=== PATIENT | female | born 1945 | race Caucasian/White ===

== ENCOUNTER 2016-06-04 10:05 | Observation (INO) ==
[2016-06-04] MEDS ORDERED: 0.9 % Sodium Chloride 1,000 ML IVC ONE (10:16)
--- NOTE | 2016-06-04 10:16 | Emergency Department Note ---
Disposition Clinical Impression: Chest pain, Head and neck cancer, Hyperlipidemia, Hypertension, Anxiety, Arm numbness left, Numbness of tongue, Cerebrovascular disease, Smoker, Abnormal EKG Disposition: Admitted As Inpatient Referrals: Francois Witt Jr, MD [Primary Care Provider] - Forms: ED Satisfaction Letter General Adult HPI - General Chief complaint: ED Neuro Symptoms/Deficit Stated complaint: neuro Time Seen by Provider: 06/04/16 10:16 Source: patient - History of Present Illness HPI Narrative: 71-year-old female reports emergent department from her primary care physician' s office. Per reports the patient complaints of some chest pain radiating to the back with some left arm discomfort or coldness. Per secondary reports that the patient experienced left upper extremity numbness and tongue numbness. The patient denies any headache or trauma or neck pain. She is not on blood thinners at this time. The patient has not fallen or injured herself. Additional concerns were nausea and perhaps weakness and a near syncopal event last night. There is no history of mamadou syncope or direct trauma. No problem moving the arms or legs and apparently no dysarthria or bowel or bladder dysfunction no acute lower back pain. She does express mid back pain however. The patient has a history of malignancy. There is no history of coughing up blood and abdominal pain vomiting or diarrhea. There is no history of rash or fever. The patient reports the numbness in her left upper extremity occurred immediately prior to arrival. She described tongue numbness but had no difficulty moving her tongue. Additional history reveals the patient has had increasing right arm weakness for the last few months. She reports she has trouble picking things up. Pain Scale: 0 - Related Data Home Medications Medication Instructions Recorded Confirmed Amlodipine [Norvasc] 5 mg PO DAILY 01/07/15 06/04/16 Aspirin 81 mg PO DAILY 01/07/15 06/04/16 Hydrocodone/Acetaminophen [[place] 1 tab PO Q4H PRN 01/07/15 06/04/16 5-325 Tablet] LORazepam [Ativan] 1 mg PO BID PRN 01/07/15 06/04/16 Lisinopril [Zestril] 40 mg PO DAILY 01/07/15 06/04/16 Omeprazole [PriLOSEC] 20 mg PO DAILY 01/07/15 06/04/16 Ascorbate Calcium [Vitamin C] 500 mg PO DAILY 05/15/15 06/04/16 Lactobacillus Acidophilus 1 mg PO DAILY 07/02/15 06/04/16 [Acidophilus Probiotic] Levothyroxine [Synthroid] 75 mcg PO DAILY 06/04/16 06/04/16 Previous Rx's Medication Instructions Recorded Cholecalciferol (Vitamin D3) 4,000 unit PO DAILY #30 capsule 03/09/16 [Vitamin D3] Citalopram Hydrobromide [Celexa] 40 mg PO DAILY #30 tab 06/01/16 Allergies Allergy/AdvReac Type Severity Reaction Status Date / Time No Known Allergies Allergy Verified 01/10/15 09:28 All systems ED: reviewed and negative except as stated. Past Medical History - Past Medical History Medical history: Reports: cancer, hypertension Surgical history: Reports: appendectomy, hysterectomy Psychiatric history: Reports: anxiety - Social History Smoking Status: Current every day smoker Alcohol use: Reports: none Drug use: Reports: none Physical Exam - General Limitations: no limitations General appearance: alert, in no apparent distress - Head Head exam: atraumatic, normocephalic, normal inspection - Eye Eye exam: Present: normal appearance, PERRL, EOMI. Absent: scleral icterus, conjunctival injection, miosis, mydriasis - ENT ENT exam: normal exam, normal oropharynx, mucous membranes moist, TM's normal bilaterally, normal external ear exam - Neck Neck exam: Present: normal inspection, full ROM, trachea midline - Chest Chest inspection: Present: symmetric chest wall rise. Absent: tenderness - Respiratory Respiratory exam: Present: normal lung sounds bilaterally. Absent: respiratory distress - Cardiovascular Cardiovascular exam: Present: regular rate, normal rhythm, normal heart sounds - Abdominal Exam Abdominal exam: Present: soft, Non-Tender. Absent: tenderness, distention, guarding, rebound, rigidity, pulsatile mass - Extremities Exam Extremities exam: Present: normal inspection, full ROM, normal capillary refill. Absent: tenderness, pedal edema, joint swelling, calf tenderness - Expanded Lower Extremity Exam Neurovascular/Tendon exam: Absent: motor deficit, sensory deficit, tendon deficit - Back Exam Back exam: Present: normal inspection, full ROM. Absent: tenderness, CVA tenderness (R), CVA tenderness (L), vertebral tenderness - Neurological Exam Neurological exam: Present: alert, oriented X3, CN II-XII intact, other (The patient has good motor strength and general sensation but complains of numbness in the left upper extremity. She also complains of tongue numbness but is able to stick her tongue out straight without difficulty and her speech is not altered. The patient does perseverate. She is not frankly confused.). Absent : motor sensory deficit - Psychiatric Psychiatric exam: Present: agitated - Skin Skin exam: Present: warm, dry, intact, normal color. Absent: rash, cyanosis, diaphoresis, erythema, pallor, mottled Course - Reevaluation(s) Reevaluation #1: In the ED the patient describes significant anxiety based on the family history of vascular disease including stroke coronary disease heart attacks and bypass. She was somewhat tearful. We monitored her here After a period of time she became less responsive. Her blood pressure did go into the 160s over 120s. She is being sent for stat CTA chest to assess for potential dissection, where awaiting neurologist consultation via tele-stroke.. Vital Signs Temperature 98.2 F 06/04/16 10:07 Pulse Rate 62 06/04/16 10:07 Respiratory Rate 12 06/04/16 10:07 Blood Pressure 178/85 06/04/16 10:07 O2 Sat by Pulse Oximetry 100 06/04/16 10:07 Temperature 98.2 F 06/04/16 10:07 Pulse Rate 67 06/04/16 10:31 Respiratory Rate 12 06/04/16 10:31 Blood Pressure 165/76 06/04/16 10:31 O2 Sat by Pulse Oximetry 100 06/04/16 10:07 Medical Decision Making - [facility] Narrative Medical decision making narrative: Patient arrived from the doctor's office initially there were concerns for chest pain which the patient described as midsternal radiating straight to the back. The patient has had no abdominal pain or trauma but she described nausea she initially described left arm symptomatology which was feeling cold then later felt that her left arm was numb and she had tongue numbness. Her neurologic exam does not reveal marked changes although slight pronator drift on the left is noted over time. There is no history of coughing up blood. She has a known malignancy. I reviewed the patient's recent stress test which was negative, as well as her recent CT scan of the chest and neck which showed no major changes. Based on her complaints, a stroke alert was initiated with simultaneous CT request of the chest to evaluate for potential intrathoracic vascular issues including dissection. The patient did complain of chest pain radiating to the back and the upper thoracic region in association with points of neurologic changes. During my examination the patient perseverate in her history but did not display mamadou confusion. Based on potential confusion, history of hypertension, history of hypokalemic, smoker, complaints of chest pain and neurologic symptoms I thought an aggressive evaluation would be appropriate. The patient's head scan chest scan and general laboratory testing were essentially negative. The patient's EKG did show some chronic T wave inversions without acute ST elevations. On review the patient had a stress test within the last year which showed no significant defects with an EF of 70%. The [facility] stroke neurologist did do an evaluation via the stroke robot. No TPA recommended. Admission here or at [facility] appropriate, aspirin therapy, if concerns or worsening reconsult [facility], the patient preferred here, I spoke with Dr. Mckenzie neurologist on-call who is willing to consult, I spoke with Dr. Finch hospitalist on-call who has accepted the patient to his care he has recommended MRI studies which have been ordered. The patient was given aspirin and appears to be stable. - Lab Data Lab results reviewed: Yes I reviewed the patient's lab results. Result diagrams: 06/04/16 10:13 06/04/16 10:13 Lab Results 06/04/16 06/04/16 06/04/16 Range/Units 10:13 10:13 10:13 WBC 5.1 (4.3-11.1) K/mcL RBC 5.80 H (3.82-4.97) M/mcL Hgb 16.0 H (11.5-15.4) g/dL Hct 48.7 H (35.3-44.9) % MCV 84.0 (83.0-100.0) fL MCH 27.6 L (28.0-33.3) pg MCHC 32.9 (31.6-35.5) g/dL RDW 14.0 (11.5-14.5) % Plt Count 232 (140-400) K/mcL MPV 10.1 (9.4-12.4) fL Immature Gran % 0.2 (0-4) % Seg Neutrophils % 65.3 % Lymphocytes % 23.2 % Monocytes % 8.4 % Eosinophils % 2.1 % Basophils % 0.8 % Neutrophils # 3.4 (1.6-8.9) K/mcL Lymphocytes # 1.2 (0.6-4.6) K/mcL Monocytes # 0.4 (0.0-1.3) K/mcL Eosinophils # 0.1 (0.0-0.6) K/mcL Basophils # 0.0 (0.0-0.2) K/mcL PT 10.5 (9.4-12.1) Seconds INR 1.0 APTT 33.4 (26.0-36.0) Seconds Sodium 140 (136-145) mEq/L Potassium 4.1 (3.5-4.5) mEq/L Chloride 104 (98-109) mEq/L Carbon Dioxide 25 (19-29) mEq/L BUN 13 (7-20) mg/dL Creatinine 1.10 (0.57-1.11) mg/dL Est GFR ( Amer) 59 L (> 60) Est GFR (Non-Af Amer) 49 L (> 60) BUN/Creatinine Ratio 12 (6-26) Glucose 108 H (70-99) mg/dL Calculated Osmolality 291 (280-300) Calcium 10.4 (8.6-10.8) mg/dL Total Bilirubin 0.7 (0.2-1.2) mg/dL Direct Bilirubin 0.2 (0.0-0.5) mg/dL Indirect Bilirubin 0.5 (0.0-1.2) mg/dL AST 16 (5-34) Units/L ALT 12 (0-55) Units/L Alkaline Phosphatase 73 (38-126) Units/L Troponin I (0-0.03) ng/mL Serum Total Protein 7.8 (6.0-8.3) g/dL Albumin 4.3 (3.5-5.0) g/dL Globulin 3.5 (2.4-3.5) g/dL Albumin/Globulin Ratio 1.2 (1.1-2.2) Lipase 36 (8-78) Units/L 06/04/16 Range/Units 10:13 WBC (4.3-11.1) K/mcL RBC (3.82-4.97) M/mcL Hgb (11.5-15.4) g/dL Hct (35.3-44.9) % MCV (83.0-100.0) fL MCH (28.0-33.3) pg MCHC (31.6-35.5) g/dL RDW (11.5-14.5) % Plt Count (140-400) K/mcL MPV (9.4-12.4) fL Immature Gran % (0-4) % Seg Neutrophils % % Lymphocytes % % Monocytes % % Eosinophils % % Basophils % % Neutrophils # (1.6-8.9) K/mcL Lymphocytes # (0.6-4.6) K/mcL Monocytes # (0.0-1.3) K/mcL Eosinophils # (0.0-0.6) K/mcL Basophils # (0.0-0.2) K/mcL PT (9.4-12.1) Seconds INR APTT (26.0-36.0) Seconds Sodium (136-145) mEq/L Potassium (3.5-4.5) mEq/L Chloride (98-109) mEq/L Carbon Dioxide (19-29) mEq/L BUN (7-20) mg/dL Creatinine (0.57-1.11) mg/dL Est GFR ( Amer) (> 60) Est GFR (Non-Af Amer) (> 60) BUN/Creatinine Ratio (6-26) Glucose (70-99) mg/dL Calculated Osmolality (280-300) Calcium (8.6-10.8) mg/dL Total Bilirubin (0.2-1.2) mg/dL Direct Bilirubin (0.0-0.5) mg/dL Indirect Bilirubin (0.0-1.2) mg/dL AST (5-34) Units/L ALT (0-55) Units/L Alkaline Phosphatase (38-126) Units/L Troponin I 0.00 (0-0.03) ng/mL Serum Total Protein (6.0-8.3) g/dL Albumin (3.5-5.0) g/dL Globulin (2.4-3.5) g/dL Albumin/Globulin Ratio (1.1-2.2) Lipase (8-78) Units/L - Radiology Data Radiology results reviewed: Yes I reviewed the patient's radiology results.
[2016-06-04 10:22] LABS: Basophils % 0.8 %; Eosinophils # 0.1 K/mcL (0.0-0.6); Eosinophils % 2.1 %; Hematocrit 48.7 % (35.3-44.9); Immature Granulocytes % 0.2 % (0-4); Lymphocytes # 1.2 K/mcL (0.6-4.6); Lymphocytes % 23.2 %; Mean Corpuscular HGB Conc 32.9 g/dL (31.6-35.5); Mean Corpuscular Hemoglobin 27.6 pg (28.0-33.3); Mean Platelet Volume 10.1 fL (9.4-12.4); Monocytes # 0.4 K/mcL (0.0-1.3); Monocytes % 8.4 %; Neutrophils # 3.4 K/mcL (1.6-8.9); Segmented Neutrophils % 65.3 %
[2016-06-04 10:24] LABS: Platelet Count 232 K/mcL (140-400)
[2016-06-04 10:32] LABS: Activated Partial Thrombo Time 33.4 Seconds (26.0-36.0)
[2016-06-04 10:33] LABS: Albumin 4.3 g/dL (3.5-5.0); Albumin/Globulin Ratio 1.2 (1.1-2.2); Bilirubin,Direct 0.2 mg/dL (0.0-0.5); Bilirubin,Indirect 0.5 mg/dL (0.0-1.2); Bilirubin,Total 0.7 mg/dL (0.2-1.2); Calcium 10.4 mg/dL (8.6-10.8); Globulin 3.5 g/dL (2.4-3.5); Potassium 4.1 mEq/L (3.5-4.5); Total Protein 7.8 g/dL (6.0-8.3)
[2016-06-04 10:35] LABS: Prothrombin Time 10.5 Seconds (9.4-12.1)
[2016-06-04] MEDS ORDERED: Aspirin 325 MG TABLET PO ONE (12:07)
[2016-06-04] MEDS ORDERED: Ondansetron 4 MG/2 ML VIAL IVP PRN (13:20)
[2016-06-04] MEDS ORDERED: Naloxone 0.4 MG/ML INJ IVP PRN (13:20)
[2016-06-04] MEDS ORDERED: 0.9 % Sodium Chloride 1,000 ML IVC SCH (13:30)
[2016-06-04] MEDS ORDERED: *HR* HYDROcodone/Acet 5/325 mg TABLET PO PRN (15:30)
--- NOTE | 2016-06-04 15:44 | Internal Med History&Physical ---
<Dianelys Drew - Last Filed: 06/04/16 16:36> Date of Encounter: 06/04/16 Time of Encounter: 15:00 Internal Medicine - H&P: HPI Chief complaint: CP Admitted From: Home Plans for Post Hospital Care: Home History of present illness: Ms. Barnett is a 71 year old female with past medical history of hypertension hypothyroid COPD esophageal cancer. According to the patient she has been experiencing dizzy spells and nausea with an unsteady gait for the past 2 weeks. She also has been experiencing pain that she describes as pressure initiates in the back and radiates to left side of her chest and left arm. She has also been experiencing left upper extremity numbness and tongue numbness. She has stated that she has noted a decrease in her strength in her right arm for the past few months and has difficulty picking things up. She apparently had an episode last night which she experienced weakness and near syncopal event. She presented to her PCP with the above complaints EKG was obtained and the patient was sent to the emergency room for concerns of chest pain. She presented to the ER with the above complaints. According to the ER records the patient had some difficulty recalling history and did have an elevated blood pressure while in the ER. CT of head was obtained which was negative troponin was negative. Rest of lab work unremarkable. EKG unchanged from previous. ER physician did speak with stroke neurologist who did an evaluation by the stroke robot he did not recommending tPA however he felt admission was appropriate for observation and aspirin therapy. Our Neurology group-Dr. Mckenzie was also consulted via telephone, and see patient during admission. The patient was given aspirin and has been admitted for further workup and evaluation. Patient did undergo MRI MRA neck head. At present time the patient is alert oriented and appropriate. She follows simple commands. Cranial nerves II through XII intact she was able to ambulate without difficulty she denies any headaches or visual changes and at present time is hemodynamically stable. I reviewed the case with Dr. odell to who agrees with plan. Assessment and plan Right arm numbness-possible TIA symptoms at present time this is resolved-CT of head is negative-MRI/MRA head /neck are negative-nerve check within normal limits at this time appears patient is at baseline. Consulted neurology awaiting their recommendations. We will continue with aspirin we will start on low-dose statin check lipid profile obtain echo. We will continue with cardiac monitoring neuro checks patient did pass a bedside swallow well-balanced diet. Chest pain-patient's been experiencing back pain radiated to left sided chest down left arm with left arm numbness tingling. First a cardiac troponins negative. We will continue to cycle troponins will obtain cardiac echo EKG did show some slight ST depression in lateral leads-patient did have a cardiac stress test in September of last year which was negative for patient follow-up as outpatient with PCP and consult cardiology as needed -Hypertension, essential presently systolic around 150 will continue with lisinopril and Norvasc. -Tobacco abuse encourage patient to stop smoking offered nicotine patch which patient declined COPD presently stable oxygen and bronchodilators as needed -DVT prophylaxis-encourage patient to ambulate Past Med Surg Social Fam HX - Past Medical History Medical history: cancer, hypertension Psychiatric history: anxiety - Past Surgical History Surgical History: appendectomy, hysterectomy, orthopedic, other - Social History Smoking Status: Current every day smoker Packs per day: 1 Smokeless Tobacco Status: No Alcohol use: none Drug use: none - Family History Mother Living Status: Age at : 50 Cause of : [place] Hx Family Cardiac Disorders: Yes ([place]) Father Living Status: Cause of : [place] Hx Family Cardiac Disorders: Yes ([place]) Internal Medicine - H&P: Meds Amlodipine [Norvasc] 5 mg PO DAILY 01/07/15 [History] Aspirin 81 mg PO DAILY 01/07/15 [History] Hydrocodone/Acetaminophen [[place] 5-325 Tablet] 1 tab PO Q4H PRN 01/07/15 [ History] LORazepam [Ativan] 1 mg PO BID PRN 01/07/15 [History] Lisinopril [Zestril] 40 mg PO DAILY 01/07/15 [History] Omeprazole [PriLOSEC] 20 mg PO DAILY 01/07/15 [History] Ascorbate Calcium [Vitamin C] 500 mg PO DAILY 05/15/15 [History] Lactobacillus Acidophilus [Acidophilus Probiotic] 1 mg PO DAILY 07/02/15 [ History] Cholecalciferol (Vitamin D3) [Vitamin D3] 4,000 unit PO DAILY #30 capsule [Rx] Citalopram Hydrobromide [Celexa] 40 mg PO DAILY #30 tab 06/01/16 [Rx] Levothyroxine [Synthroid] 75 mcg PO DAILY 06/04/16 [History] Allergies No Known Allergies Allergy (Verified 01/10/15 09:28) All Systems PM: A 10-system review of systems was performed and is negative for pertinent findings except as documented above in the HPI. - Constitutional Constitutional: weakness - Cardiovascular Cardiovascular ROS IM: chest pain - Respiratory Respiratory: no cough, no dyspnea, no wheezing, no excessive phlegm production - Gastrointestinal Gastrointestinal: no abdominal pain, no diarrhea, no hematemesis, no hematochezia, no melena, no nausea, no vomiting - Genitourinary Genitourinary: no change in urinary stream, no dysuria, no flank pain, no hematuria - Musculoskeletal Musculoskeletal ROS IM: back pain - Integumentary Integumentary IM: no rash, no unusual bruising - Neurological Neurological ROS: numbness, vertigo, weakness - Constitutional Vitals: Temp Pulse Resp BP Pulse Ox 97.4 F L 57 16 154/75 100 06/04/16 14:34 06/04/16 14:34 06/04/16 14:34 06/04/16 14:34 06/04/16 14:34 - Head Head exam: Present: atraumatic, normocephalic - Eye Eye exam: Present: PERRL, conjuntiva pink, sclera anicteric Pupils: Present: PERRL - Neck Neck exam general surgery: Present: supple, trachea midline. Absent: lymphadenopathy - Respiratory Respiratory exam: Present: CTAB. Absent: accessory muscle use, rales, rhonchi, wheezes - Cardiovascular Cardiovascular exam: Present: RRR, +S1, +S2. Absent: diastolic murmur, gallop, rubs, systolic murmur - GI/Abdominal GI/Abdominal exam: Present: normal bowel sounds, soft, no peritoneal signs. Absent: distended, tenderness - Extremities Exam Extremities exam: Present: warm, radial pulses palpable and symetrical. Absent : calf tenderness, cyanotic, pedal edema - Neurological Exam Neurological exam: Present: CN II-XII intact, oriented X3, no focal deficits, strengths equal and symetr throughout. Absent: pronater drift, facial droop, speech deficit - Skin Skin exam: Present: dry, intact Internal Med - H&P Results - Labs CBC & Chem 7: 06/04/16 10:13 06/04/16 10:13 - EKG Data EKG shows normal: sinus rhythm Rate: bradycardia - EKG Data Prior EKG available for review: yes When compared to previous EKG: there is no significant change - Impressions ITS Impressions Brain MRI 06/04/16 12:34 IMPRESSION: 1. No acute intracranial abnormality. Specifically, no acute infarction. 2. Supratentorial white matter foci of abnormal signal compatible with chronic microvascular ischemic changes. 3. Unremarkable MRA of the neck. 4. Unremarkable MRA of the head. D/ / 06/04/2016 15:00:12 Lara Garza MD / fuentes Interpreting Provider: Lara Garza MD - Diagnostic Studies MRI - head Additional comments: per radiology read no acute intracranial bleed <Marc Finch - Last Filed: 06/04/16 18:48> Date of Encounter: 06/04/16 Internal Medicine - H&P: HPI History of present illness: Ms. Barnett is a 71 year old female All Systems PM: A 10-system review of systems was performed and is negative for pertinent findings except as documented above in the HPI. - Constitutional Vitals: Temp Pulse Resp BP Pulse Ox 97.4 F L 57 16 154/75 100 06/04/16 14:34 06/04/16 14:34 06/04/16 14:34 06/04/16 14:34 06/04/16 14:34 Internal Med - H&P Results - Labs CBC & Chem 7: 06/04/16 10:13 06/04/16 10:13 Labs: Cardiac Enzymes 06/04/16 Range/Units 16:31 Troponin I 0.00 (0-0.03) ng/mL - Impressions ITS Impressions Brain MRI 06/04/16 12:34 IMPRESSION: 1. No acute intracranial abnormality. Specifically, no acute infarction. 2. Supratentorial white matter foci of abnormal signal compatible with chronic microvascular ischemic changes. 3. Unremarkable MRA of the neck. 4. Unremarkable MRA of the head. D/ / 06/04/2016 15:00:12 Lara Garza MD / fuentes Interpreting Provider: Lara Garza MD - Attending Attestation I examined this patient and my medical decision-making was reviewed with the Advanced Practice Provider. I agree with the documented findings, disposition and treatment plan as described except to the extent set forth below. On exam she appears anxious, no acute distress oriented 3. Heart regular rate and rhythm S1 and S2, lungs clear bilaterally Plan: Complete workup for TIA with telemetry and echocardiogram. MRI report noted with no evidence of stroke. Continue aspirin. We will add Ativan for anxiety.
--- NOTE | 2016-06-04 16:29 | Neurology - Consult Note ---
Date of Encounter: 06/04/16 Time of Encounter: 16:27 Assessment and Plan (1) Arm numbness left Current Visit: Yes Status: Acute My impression that the numbness of the left upper extremity in fact be anxiety related. She has had numerous neuroimaging studies completed today which were negative. She informs me that she has had these spells repeatedly over the last few years. She did not have an echocardiogram today she has had echocardiograms in the past, she also reports having had EEGs in the past. In the past neurologic workups have been unrevealing. I would recommend ongoing management of her stroke risk factors, aspirin daily. I do not feel that further testing from a neurologic perspective is necessary at this time. I will reevaluate her at your request. The documentation in the history of HPI and plan were at least partially created by [employer] recognition technology by Dr. Mckenzie. Errors in grammar, wording or other phrases may exist. If errors are found after the documentation signed, they will be addressed individually in the addendum section of this document when appropriate. History of Present Illness HPI: Ms. Barnett is a 71 year old female was seen and evaluated secondary to left upper extremity weakness with associated dizziness. The chart was reviewed, the patient was seen and examined. She has been experiencing intermittent spells of what she calls dizziness with associated nausea for the past 2 weeks. He frequently feels like she is going to lose consciousness however she has not actually passed out. She is awake and alert and oriented to person place and time she is able to give a lucid history of her medical illness. Currently she feels back to her baseline and is pressing to be released from the hospital. MRI scan of the brain along with MRA of the brain and neck were completed and unrevealing. He is no evidence of an acute diffusion deficit to explain the symptoms. Past Med Surg Social Fam HX - Past Medical History Medical history: cancer, hypertension Psychiatric history: anxiety - Past Surgical History Surgical History: appendectomy, hysterectomy, orthopedic, other - Social History Smoking Status: Current every day smoker Packs per day: 1 Smokeless Tobacco Status: No Alcohol use: none Drug use: none - Family History Mother Living Status: Age at : 50 Cause of : MA Hx Family Cardiac Disorders: Yes (MA) Father Living Status: Cause of : MA Hx Family Cardiac Disorders: Yes (MA) Medications and Allergies Amlodipine [Norvasc] 5 mg PO DAILY 01/07/15 [History] Aspirin 81 mg PO DAILY 01/07/15 [History] Hydrocodone/Acetaminophen [[place] 5-325 Tablet] 1 tab PO Q4H PRN 01/07/15 [ History] LORazepam [Ativan] 1 mg PO BID PRN 01/07/15 [History] Lisinopril [Zestril] 40 mg PO DAILY 01/07/15 [History] Omeprazole [PriLOSEC] 20 mg PO DAILY 01/07/15 [History] Ascorbate Calcium [Vitamin C] 500 mg PO DAILY 05/15/15 [History] Lactobacillus Acidophilus [Acidophilus Probiotic] 1 mg PO DAILY 07/02/15 [ History] Cholecalciferol (Vitamin D3) [Vitamin D3] 4,000 unit PO DAILY #30 capsule [Rx] Citalopram Hydrobromide [Celexa] 40 mg PO DAILY #30 tab 06/01/16 [Rx] Levothyroxine [Synthroid] 75 mcg PO DAILY 06/04/16 [History] Allergies No Known Allergies Allergy (Verified 01/10/15 09:28) All Systems: A 10-system review of systems was performed and is negative for pertinent findings except as documented above in the HPI. Review of Systems: Ten point review of systems is consistent with a history of present illness otherwise negative. Physical Examination - Vital Signs Vital Signs: Initial Vital Signs Temp Pulse Resp BP Pulse Ox 98.2 F 62 12 178/85 100 06/04/16 10:07 06/04/16 10:07 06/04/16 10:07 06/04/16 10:07 06/04/16 10:07 - Neurologic Detailed motor examination: grossly full strength in all extremities Motor examination - right side: 4/5: tibialis Anterior, toe extension (EHL), 5/5 : deltoids, biceps, triceps, wrist flexion, wrist extension, biodiesel production associate, hip flexors, quadriceps, plantarflexion Motor examination - left side: 4/5: deltoids (Giveaway), biceps (Giveaway), tibialis Anterior, toe extension (EHL), 5/5: triceps, wrist extension, hip flexors, biodiesel production associate, quadriceps, plantarflexion Detailed sensory examination: intact Reflexes: Biceps: 1+, Triceps: 1+, Brachioradialis: 1+, Patella: 1+, Achilles: 1 + Mental Status Examination: awake, alert, oriented to person, oriented to place, oriented to time, follows commands appropriately, answers questions appropriately, no agnosia, no aphasia, no aproxia Cranial nerve examination: PERRL, EOMI, visual curry intact, corneal reflexes brisk symmetrically, sensory to face intact, mastication intact, no facial asymmetry is present, no dysarthria, hearing is intact symmetrically, soft palate elevates bilaterally upon phonation, gag reflex intact, flexes SCM and trapezius muscles symmetrically with full power, tongue protrudes midline, no atrophy or facial fasiculations present Cerebellar examination: no dysmetria, performs finger to nose and heel to garcia symmetrically without ataxia, no gait ataxia, no truncal ataxia, no difficulty with rapid alternating movements Results - Laboratory Findings CBC and BMP: 06/04/16 10:13 06/04/16 10:13 Abnormal lab findings: Abnormal lab results RBC 5.80 M/mcL (3.82-4.97) H 06/04/16 10:13 Hgb 16.0 g/dL (11.5-15.4) H 06/04/16 10:13 Hct 48.7 % (35.3-44.9) H 06/04/16 10:13 MCH 27.6 pg (28.0-33.3) L 06/04/16 10:13 Est GFR ( Amer) 59 (> 60) L 06/04/16 10:13 Est GFR (Non-Af Amer) 49 (> 60) L 06/04/16 10:13 Glucose 108 mg/dL (70-99) H 06/04/16 10:13 Consult Discharge Plan - Plan Referrals: Francois Witt Jr, MD [Primary Care Provider] -
[2016-06-04] MEDS ORDERED: *HR* LORazepam 1 MG TABLET PO PRN (18:16)
[2016-06-04 20:18] LABS: Bilirubin,Urine Negative (Negative); Blood,Urine Negative (Negative); Clarity,Urine Clear (Clear); Color,Urine Yellow (Yellow); Glucose,Urine (UA) Normal (Normal); Ketones,Urine Negative (Negative); Leukocyte Esterase,Urine Negative (Negative); Nitrite,Urine Negative (Negative); Protein,Urine Trace mg/dL (Neg-Trace); Specific Gravity,Urine > 1.030 (1.010-1.025); Urobilinogen,Urine Normal (Normal)
[2016-06-04 20:21] LABS: Bacteria,Urine None Seen per hpf (None-Few); Hyaline Casts,Urine None Seen per lpf (None-Few); Squamous Epithelial Cell,Urine Many per lpf (None-Few)
[2016-06-05 04:55] LABS: Basophils % 1.3 %; Eosinophils # 0.1 K/mcL (0.0-0.6); Eosinophils % 3.6 %; Hematocrit 39.6 % (35.3-44.9); Hemoglobin 12.9 g/dL (11.5-15.4); Lymphocytes # 0.9 K/mcL (0.6-4.6); Lymphocytes % 30.7 %; Mean Corpuscular HGB Conc 32.6 g/dL (31.6-35.5); Mean Corpuscular Hemoglobin 27.7 pg (28.0-33.3); Mean Corpuscular Volume 85.2 fL (83.0-100.0); Mean Platelet Volume 10.9 fL (9.4-12.4); Monocytes # 0.3 K/mcL (0.0-1.3); Monocytes % 9.8 %; Neutrophils # 1.7 K/mcL (1.6-8.9); Platelet Count 197 K/mcL (140-400); Red Blood Count 4.65 M/mcL (3.82-4.97); Red Cell Distribution Width 14.1 % (11.5-14.5); Segmented Neutrophils % 54.6 %
[2016-06-05 05:13] LABS: BUN/Creatinine Ratio 12 (6-26); Blood Urea Nitrogen 12 mg/dL (7-20); Carbon Dioxide 23 mEq/L (19-29); Chloride 108 mEq/L (98-109); Cholesterol 234 mg/dL (< 200); Glucose 95 mg/dL (70-99); HDL Cholesterol 39 mg/dL (40-59); LDL Cholesterol,Calculated 161 mg/dL (0-99); Osmolality,Calculated 290 (280-300); Potassium 4.3 mEq/L (3.5-4.5); Sodium 140 mEq/L (136-145); Triglycerides 170 mg/dL (< 150); eGFR For African Americans > 60 (> 60); eGFR For Non-African Americans 53 (> 60)
[2016-06-05 05:16] LABS: Calcium 8.6 mg/dL (8.6-10.8)
[2016-06-05 07:00] VITALS: BP 120/63
[2016-06-05] MEDS ORDERED: Lisinopril 20 MG TABLET PO SCH (09:00)
[2016-06-05] MEDS ORDERED: amLODIPine 5 MG TABLET PO SCH (09:00)
[2016-06-05] MEDS ORDERED: Aspirin 325 MG TABLET PO SCH (09:00)
--- NOTE | 2016-06-05 09:59 | Discharge Summary ---
Date of Encounter: 06/05/16 Time of Encounter: 09:58 - Discharge Diagnosis (1) TIA (transient ischemic attack) Priority: Primary Status: Acute Qualifiers: Transient cerebral ischemia type: unspecified Qualified Code(s): G45.9 - Transient cerebral ischemic attack, unspecified (2) Vertigo Priority: Primary Status: Acute (3) Hyperlipidemia Priority: Secondary Status: Acute Qualifiers: Hyperlipidemia type: unspecified Qualified Code(s): E78.5 - Hyperlipidemia , unspecified (4) Anxiety Priority: Secondary Status: Acute (5) Hypothyroidism (acquired) Priority: Secondary Status: Chronic - Discharge Medications Prescriptions: Meclizine [Antivert] 12.5 mg PO TID PRN #30 tablet PRN Reason: Dizziness Simvastatin [Zocor] 10 mg PO HS #30 tablet Home Medications: Amlodipine [Norvasc] 5 mg PO DAILY 01/07/15 [History] Aspirin 81 mg PO DAILY 01/07/15 [History] Hydrocodone/Acetaminophen [[place] 5-325 Tablet] 1 tab PO Q4H PRN 01/07/15 [ History] LORazepam [Ativan] 1 mg PO BID PRN 01/07/15 [History] Lisinopril [Zestril] 40 mg PO DAILY 01/07/15 [History] Omeprazole [PriLOSEC] 20 mg PO DAILY 01/07/15 [History] Ascorbate Calcium [Vitamin C] 500 mg PO DAILY 05/15/15 [History] Lactobacillus Acidophilus [Acidophilus Probiotic] 1 mg PO DAILY 07/02/15 [ History] Cholecalciferol (Vitamin D3) [Vitamin D3] 4,000 unit PO DAILY #30 capsule [Rx] Citalopram Hydrobromide [Celexa] 40 mg PO DAILY #30 tab 06/01/16 [Rx] Levothyroxine [Synthroid] 75 mcg PO DAILY 06/04/16 [History] Meclizine [Antivert] 12.5 mg PO TID PRN #30 tablet 06/05/16 [Rx] Simvastatin [Zocor] 10 mg PO HS #30 tablet 06/05/16 [Rx] Allergies/Adverse Reactions: Allergies No Known Allergies Allergy (Verified 01/10/15 09:28) Procedures/tests Complete & Pending: Procedures Performed prior 72 hours Category Date Time Status MR head/brain wo con [MR] Stat MRI 06/04/16 12:34 Completed EV echocardiogram Routine Y 06/04/16 16:03 Completed Date of admission: 06/04/16 12:27 Primary care physician: Francois Witt Jr, MD Consults: 06/04/16 15:26 Consult to Neurology [CONS] Routine Consulting Provider: Neurology [facility] Reason for Consult: CVA vs TIA notified Dr Mckenzie per ED physician Time Notified: 15:28 Call Completed: No - Patient Status Disposition: Home, Self-Care Condition: Good Overall status at discharge: patient is back to baseline - Discharge Instructions Instructions: Chest Pain (DC), Chronic Hypertension (DC), Anxiety (DC) Follow Up With: Francois Witt Jr, MD [Primary Care Provider] - - Diet and Activity Activity: increase activity as tolerated Diet: advance to your usual diet Hospital course: Ms. Barnett is a 71 year old female who presented with upper extremity weakness , there was concern for acute CVA however testing was negative suggesting a TIA. Patient complained of vertigo and was also prescribed meclizine prn. She was doing well on day of discharge standing in the hallways without symptoms. She will be discharged home in stable condition. - Time Spent with Patient Total time spent providing and/or coordinating discharge services: - Constitutional Vitals: Temp Pulse Resp BP Pulse Ox 97.8 F 60 16 120/63 96 06/05/16 06:58 06/05/16 06:58 06/05/16 06:58 06/05/16 06:58 06/05/16 06:58 General appearance: Present: A&O X 3 - Head Head exam: Present: atraumatic, normocephalic - Eye Eye exam: Present: PERRL, conjuntiva pink, sclera anicteric Pupils: Present: PERRL - Neck Neck exam general surgery: Present: supple, trachea midline. Absent: lymphadenopathy - Respiratory Respiratory exam: Present: CTAB. Absent: accessory muscle use, rales, rhonchi, wheezes - Cardiovascular Cardiovascular exam: Present: RRR, +S1, +S2. Absent: diastolic murmur, gallop, rubs, systolic murmur - GI/Abdominal GI/Abdominal exam: Present: normal bowel sounds, soft, no peritoneal signs. Absent: distended, tenderness - Extremities Exam Extremities exam: Present: warm, radial pulses palpable and symetrical. Absent : calf tenderness, cyanotic, pedal edema - Neurological Exam Neurological exam: Present: CN II-XII intact, oriented X3, no focal deficits. Absent: pronater drift, facial droop, speech deficit - Skin Skin exam: Present: dry, intact
--- NOTE | 2016-06-05 16:13 | Electrocardiograph Report ---
[facility] Test Date: 2016-06-04 Pat Name: Marlene Barnett Department: 104 Room: 3B33 Gender: F [employer] Hand: JENNIFER : 1945 Requested By: Wali Tong Order Number: [id number] Reading MD: Se Rao DO Measurements Intervals [place] Rate: 55 P: 57 NH: 129 QRS: 23 QRSD: 94 T: 109 QT: 419 QTc: 409 Interpretive Statements SINUS BRADYCARDIA NONSPECIFIC ST \T\ T-WAVE ABNORMALITY Electronically Signed On 06-05-16 16:12:37 EST by Se Rao DO
== END 2016-06-05 12:51 | disposition home or self-care (01) ==
LOC: EMEROO 10:05 → 3BNU 10:05
PROVIDERS: ADMIT Internal Medicine; ATTEND Nurse Practitioner Family